=== PATIENT | male | born 1940 | race Caucasian/White ===

== ENCOUNTER 2018-06-23 13:49 | Emergency (ER) | payer OTHER ==
[2018-06-23 14:02] VITALS: BP 151/82
--- NOTE | 2018-06-23 14:15 | EDPHY ---
H & P Time Seen by Provider: 06/23/18 13:52 HPI/ROS: HPI Prescription refill. 78-year-old male by private vehicle with his daughter. This patient lives independently in [facility]. He is here visiting his daughter. He has his prescription medications provided to him in [facility]. He has a home health critical care unit manager that checks in on him once a week in [facility]. He presents to the emergency department asking for a refill prescription for his Ambien. He has 2 Ambien tablets left. This is the co story conversion of zolpidem and they are 7.5 mg tablets. He has an appointment to see an internal medicine physician, Dr. Max May, for a physical in 10 days and can get refill of his medications at that time as well. He and his daughter are asking for a prescription for zolpidem to bridge him until that appointment. He otherwise has no complaints. ROS: Constitutional: No fever, no chills. No weakness. Neurological: No headache. No focal weakness or altered sensation. Past medical history: Hypertension, hyperlipidemia, history of closed head injuries, dementia, left hip replacement. Social history: Currently here with his daughter. He lives independently as noted above in [facility]. Nonsmoker. No alcohol. Physical Exam: General Appearance: Alert, no distress. This patient is responding to questions appropriately and in full sentences. This patient appears well- hydrated and well-nourished. Eyes: Pupils equal and round no pallor or injection. No lid edema, erythema or injection. Neurological: Motor sensory function is grossly intact. Cranial nerves are normal. Gait is normal. Skin: Warm and dry, no rashes. Extremities are symmetrical. All joints range without pain or impingement. Psychiatric: No agitation. No depression. Database: EKG: Imaging: Procedures: Emergency department course: Triage vital signs reviewed. He is moderately hypertensive. Vital signs are otherwise normal. I explained I would prescribe him a 10 day course of zolpidem , 10 mg to be taken at night to help him sleep until he can be seen by his internal medicine physician in 10 days. The patient's remaining emergency department course under my care has been uneventful. Follow-up was discussed. Return to emergency department precautions reviewed. All of his questions were answered. He was discharged in good condition with his daughter. Differential Diagnosis: The differential diagnosis on this patient includes but is not limited to prescription refill, history of insomnia. This represents a partial list of diagnoses considered. These considerations are based on history, physical exam , past history, reassessment and diagnostic testing. Constitutional: Initial Vital Signs Temperature (C) 37.2 C 06/23/18 13:58 Heart Rate 79 06/23/18 13:58 Respiratory Rate 18 06/23/18 13:58 Blood Pressure 151/82 H 06/23/18 13:58 O2 Sat (%) 94 06/23/18 13:58 O2 Delivery Mode Room Air Allergies/Adverse Reactions: No Known Allergies Allergy (Unverified 06/23/18 14:03) Home Medications: Medication Instructions Recorded Ambien 06/23/18 Bp Medication 06/23/18 Lovastatin 06/23/18 Metformin 1000 mg 06/23/18 Zolpidem Tartrate 10 mg PO HS #10 tablet 06/23/18 Departure - Departure Disposition: Home, Routine, Self-Care Clinical Impression: Prescription refill, Insomnia Condition: Good Instructions: Insomnia (ED) Additional Instructions: Read and follow provided instructions. Follow-up with your primary care physician as scheduled in 10 days for re- evaluation. Take medication as prescribed only. Return to the emergency department for any serious concerns. Referrals: Max May MD [Primary Care Provider] - As per Instructions Prescriptions: Zolpidem Tartrate 10 mg PO HS #10 tablet
== END 2018-06-23 14:20 | disposition home or self-care (01) ==
LOC: CED 13:49
DX: Z76.0 Encounter for issue of repeat prescription (principal); G47.00 Insomnia, unspecified
CPT/HCPCS: 99283-ER